=== PATIENT | male | born 2005 | race Caucasian/White ===

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

== ENCOUNTER 2023-04-18 09:33 | Emergency (ER) | payer OTHER, SELFPAY ==
[2023-04-18 10:00] VITALS: BP 140/82; PULSE 91; RESP 18; TEMP 36.8; O2SAT 99; BMI 17.6
[2023-04-18 10:18] LABS: UTC Strep Screen (Rapid) Positive (Negative)
--- NOTE | 2023-04-18 10:20 | EXP.UTC ---
Discharge Plan Disposition Patient Disposition: Home, Self-Care Condition: Good Prescriptions Prescriptions: New methylprednisolone 4 mg Tablets,Dose Pack 4 mg PO DIRECTED Qty: 21 0RF fzxpbxqwqrjaypa-[id number]-CF [Bromfed DM] 2-30-10 mg/5 mL Syrup 5 ml PO Q6H PRN (Reason: Cough) Qty: 240 0RF amoxicillin-pot clavulanate 875-125 mg Tablet 1 tab PO Q12H Qty: 20 0RF Referrals Follow up/Referrals: Avi Novak MD [Primary Care Provider] - See instructions Activity Restrictions/Add. Instructions Additional Instructions/Restrictions: Drink plenty of fluids. Take tylenol or ibuprofen for pain or fever. Take the medications as directed. Follow up with your regular doctor. GO TO THE ER FOR ANY WORSENING SYMPTOMS Throw your tooth brush away and get a new one. Clinical Impressions Clinical Impression: Strep throat Instructions Patient Instructions: DI for Strep Throat Discharge ED Provider: Farooq Cowart [facility] General Stated complaint: sore throat,runny nose Mode of Arrival: Ambulatory Source of Information: Patient Limitations: No Limitations Time Seen by Provider: 04/18/23 10:20 Description of Symptoms (Recalled from Triage Doc. by RN): runny nose, cough, sore throat, and body aches HEENT Symptoms (Recalled from RN notes): Yes Resp Symptoms (Recalled from RN notes): No Skin Symptoms (Recalled from RN notes): No MS Symptoms (Recalled from RN notes): No Functional Status (Recalled from RN notes): n/a Related Data Previous Rx's Medication Instructions Recorded amoxicillin 875 mg-potassium 1 tab PO Q12H #20 tabs 04/18/23 clavulanate 125 mg tablet tnyonjcgwoqarjq-mghpncvyhydrvfp-ST 5 ml PO Q6H PRN Cough #240 mL 04/18/23 2 mg-30 mg-10 mg/5 mL oral syrup (Bromfed DM) methylprednisolone 4 mg tablets in 4 mg PO DIRECTED #21 tabs 04/18/23 a dose pack Allergies Allergy/AdvReac Type Severity Reaction Status Date / Time No Known Allergies Allergy Verified 04/18/23 10:20 Worker's Comp Is this a Worker's Comp case?: No [facility] Disclaimer: The information contained in this section may have been updated after the patient was seen, as this information can be updated by other users. Social History Smoking Status: Never smoker alcohol intake: never substance use type: denies use current occupational status: student Travel in the last 8 weeks: None household members: family housing: house ROS Obtained: Yes All systems reviewed & no additional complaints except as documented Constitutional Constitutional: Reports chills and Reports fever(s) Eyes Eyes: Denies eye discharge ENT Ears, Nose, Mouth, and Throat: Reports as per HPI Cardiovascular Cardiovascular: Denies chest pain Respiratory Respiratory: Denies chest congestion and Reports cough Gastrointestinal Gastrointestingal: Reports nausea; Denies abdominal pain, constipation, cramping, diarrhea or vomiting Musculoskeletal Musculoskeletal: Denies arthralgias Integumentary/Breasts Skin/Breast: Denies rash Neurologic Neurologic: Denies paresthesias Physical Exam General General appearance: alert and in no apparent distress Head Head exam: atraumatic, normocephalic and normal inspection Eye Eye exam: Present normal appearance, PERRL and EOMI ENT ENT exam: Present mucous membranes moist and normal external ear exam Expanded ENT Exam TM/Canal exam: Bilateral TM: erythema and bulging Nose exam: Absent sinus tenderness Mouth exam: Present normal external inspection; Absent drooling Teeth exam: Present normal inspection Throat exam: Present tonsillar erythema, tonsillomegaly and tonsillar exudate Neck Neck exam: Present normal inspection, full ROM and trachea midline; Absent tenderness, meningismus or lymphadenopathy Chest Chest inspection: Present normal inspection and symmetric chest wall rise; Absent tenderness Respiratory Respiratory exam: P
[2023-04-18 11:02] VITALS: BP 140/82; PULSE 91; RESP 18; TEMP 36.8; O2SAT 99
== END 2023-04-18 11:02 | disposition home or self-care (01) ==
PROVIDERS: Emergency Provider Nurse Practitioner Family; PCP Family Medicine
DX: J02.0 Streptococcal pharyngitis (principal); R05.9 Cough, unspecified
CPT/HCPCS: 87880; 99212; 99214; G0463

== ENCOUNTER 2023-12-20 12:23 | Emergency (ER) | payer SELFPAY ==
[2023-12-20 12:24] VITALS: BP 142/77; PULSE 67; RESP 20; TEMP 37.1; O2SAT 98; BMI 18.7
[2023-12-20 12:30] VITALS: BP 137/76; PULSE 78; O2SAT 98
--- NOTE | 2023-12-20 12:44 | XR_ITS ---
FINAL REPORT CLINICAL HISTORY: car trunk closed on L flank/ribs, pain FINDINGS: LEFT RIBS 3 views were obtained. There is no acute fracture or dislocation. Visualized joint spaces are normally aligned. Soft tissues are unremarkable. Visualized lungs are clear. There is no pneumothorax. IMPRESSION: No acute bony abnormality. Reviewed, Interpreted and Dictated by Lino Ibanez III, MD Transcribed by Sil Khan Authenticated and . [facility]
--- NOTE | 2023-12-20 12:44 | XR_ITS ---
FINAL REPORT CLINICAL HISTORY: car trunk closed on L flank/ribs/pelvis, pain FINDINGS: SINGLE VIEW PELVIS: A single view of the pelvis was obtained. There is no acute fracture or dislocation. Vizualized joint spaces are normally aligned. Soft tissues are unremarkable. IMPRESSION: No acute bony abnormality. Reviewed, Interpreted and Dictated by Lino Ibanez III, MD Transcribed by Sil Khan Authenticated and [facility]
[2023-12-20] MEDS: IBUPROFEN 400 MG TABLET 800 MG PO (12:49)
[2023-12-20] MEDS: ACETAMINOPHEN 500MG TAB 1000 MG PO (12:49)
[2023-12-20] MEDS: LIDOCAINE 5% TRANSDERMAL PATCH 1 EACH TP (12:49)
--- NOTE | 2023-12-20 12:49 | ED_ITS ---
Discharge Plan Disposition Patient Disposition: Home, Self-Care Condition: Good Prescriptions Prescriptions: No Action methylprednisolone 4 mg Tablets,Dose Pack 4 mg PO DIRECTED Qty: 21 0RF mzsftombcyjzdpj-qcreqjtkq-JO [Bromfed DM] 2-30-10 mg/5 mL Syrup 5 ml PO Q6H PRN (Reason: Cough) Qty: 240 0RF amoxicillin-pot clavulanate 875-125 mg Tablet 1 tab PO Q12H Qty: 20 0RF Referrals Follow up/Referrals: Provider,Referral, [Primary Care Provider] - See instructions Activity Restrictions/Add. Instructions Additional Instructions/Restrictions: You were evaluated in the emergency department today. Please take Tylenol and ibuprofen at home as needed for pain. Follow-up with your primary care provider. Return to the emergency department for new or worsening symptoms. Clinical Impressions Clinical Impression: Contusion of rib on left side Stand Alone Forms Stand Alone Forms: Work/School Release Instructions Patient Instructions: DI for Rib Contusion, DI for Acute Pain -- Adult Discharge ED Provider: Viridiana Forman General Adult HPI General Chief complaint: PAIN Stated complaint: left side pain Time Seen by Provider: 12/20/23 12:33 Mode of Arrival: Ambulatory Source of Information: Patient Limitations: No Limitations Description of Symptoms (Recalled from ER Triage Doc. by RN): Patient states the trunk on a car closed on him last night. Patient states pain in his left side rib area rates pain 5/10 at this time. History of Present Illness HPI narrative: This patient is a 18-year-old male who denies significant past medical history presenting to the emergency department for evaluation with concern for left rib, left flank, and left pelvic pain after a car trunk closed on him last night. His pain is 5 out of 10. He states he went to bed last night and thought he would be fine, but when he tried to go to work today his pain was much worse. He is not taken any medications at home for the pain prior to arrival. His pain is worse on his left rib/flank when he tries to raise his left arm. No other concerns noted at this time. No head injury or loss of consciousness. No midline back pain, numbness, tingling, or other concerns. Related Data Previous Rx's Medication Instructions Recorded amoxicillin 875 mg-potassium 1 tab PO Q12H #20 tabs 04/18/23 clavulanate 125 mg tablet dgiwucsstsssndv-bajjzxwvfjddbnt-NA 5 ml PO Q6H PRN Cough #240 mL 04/18/23 2 mg-30 mg-10 mg/5 mL oral syrup (Bromfed DM) methylprednisolone 4 mg tablets in 4 mg PO DIRECTED #21 tabs 04/18/23 a dose pack Allergies Allergy/AdvReac Type Severity Reaction Status Date / Time No Known Allergies Allergy Verified 04/18/23 10:20 [facility] Disclaimer: The information contained in this section may have been updated after the patient was seen, as this information can be updated by other users. Social History Smoking Status: Never smoker alcohol intake: never substance use type: denies use current occupational status: student Travel in the last 8 weeks: None household members: family housing: house ROS Obtained: Yes All systems reviewed & no additional complaints except as documented Physical Exam General General appearance: alert and in no apparent distress Head Head exam: atraumatic and normocephalic Eye Eye exam: Present normal appearance, PERRL and EOMI ENT ENT exam: Present normal exam, normal oropharynx, mucous membranes moist and normal external ear exam Neck Neck exam: Present normal inspection, full ROM and trachea midline; Absent tenderness Chest Chest inspection: Present symmetric chest wall rise and tenderness (Left lateral lower ribs. No palpable crepitus, no obvious deformity, and no significant bruising) Respiratory Respiratory exam: Present normal lung sounds bilaterally; Absent respiratory distress, wheezes, stridor or accessory muscle use Cardiovascular Cardiovascular exam: Present regular rate and normal rhythm Abdominal Exam Abdominal exam: Present soft; Absent distention, tenderness or guarding Extremities Exam Extremities exam: Present normal inspection, full ROM, normal capillary refill and other (Tender to palpation of the left iliac crest without obvious deformity.); Absent tenderness or edema Back Exam Back exam: Present normal inspection and full ROM; Absent tenderness, paraspinal tenderness or vertebral tenderness Neurological Exam Neurological exam: Present alert, oriented X3, CN II-XII intact and normal gait; Absent motor sensory deficit Psychiatric Psychiatric exam: Present normal affect and normal mood Skin Skin exam: Present warm and dry Medical Decision Making Medical Records Medical records reviewed: Yes I reviewed the patient's medical records. Mg Inquiry Pt receiving controlled substance: No Vital Signs: 12/20/23 12:24 12/20/23 12:30 12/20/23 13:30 Temperature 98.7 F Temperature Source Oral Pulse Rate 78 67 Pulse Rate [Right Radial] 67 Respiratory Rate 20 Blood Pressure 137/76 132/70 Blood Pressure [Right Arm] 142/77 H Blood Pressure Mean [Right Arm] 98 Blood Pressure Source Blood Pressure Source [Right Arm] Automatic Cuff Blood Pressure Position Blood Pressure Position [Right Arm] Sitting 02 Sat by Pulse Oximetry 98 98 98 Oxygen Delivery Method Room Air Room Air Room Air 12/20/23 14:19 Temperature 98.8 F Temperature Source Oral Pulse Rate 72 Pulse Rate [Right Radial] Respiratory Rate 20 Blood Pressure 119/73 Blood Pressure [Right Arm] Blood Pressure Mean [Right Arm] Blood Pressure Source Automatic Cuff Blood Pressure Source [Right Arm] Blood Pressure Position Sitting Blood Pressure Position [Right Arm] 02 Sat by Pulse Oximetry Oxygen Delivery Method Room Air Lab Data Lab results reviewed: Yes I reviewed the patient's lab results. Orders (Tests/Meds): ED MEDICATIONS Discontinued Medications Generic Name Dose Route Start Last Admin Trade Name Devonq PRN Reason Stop Dose Admin Acetaminophen 1,000 mg 12/20/23 12:44 12/20/23 12:49 Acetaminophen 500mg Tab PO 12/20/23 12:45 1,000 mg ONCE ONE Administration Ibuprofen 800 mg 12/20/23 12:44 12/20/23 12:49 Ibuprofen 400 Mg Tablet PO 12/20/23 12:45 800 mg ONCE ONE Administration Lidocaine 1 each 12/20/23 12:44 12/20/23 12:49 Lidocaine 5% Transdermal Patch TP 12/20/23 12:45 1 each ONCE ONE Administration ORDERS Category Date Time Status XR pelvis 1-2V Stat Exams 12/20/23 12:44 Completed XR ribs LT min 3V w CXR1V Stat Exams 12/20/23 12:44 Completed Medical Decision Narrative: In summary, this patient is a 18-year-old male presenting to the Emergency Department for evaluation of left flank and rib pain after a car trunk closed on him. Differential diagnoses considered include but are not limited to rib fractures, contusion, strain/sprain. Ruling out the most morbid conditions drove assessment. On exam, the patient is well-appearing. He has tenderness palpation of the left lower ribs, left flank, and left iliac crest. Exam is otherwise reassuring. Workup included x-rays of the left ribs and chest as well as x-ray of the pelvi s. He was given oral Tylenol, ibuprofen, and topical Lidoderm patch for symptomatic improvement. I independently interpreted XR prior to the radiologist read and noted no acute fracture. Please see their read for final interpretation. On reassessment, the patient is resting comfortably. I feel he likely has pain related to rib contusion at this time. Given this, feel that he is appropriate for discharge home. He was given instructions for supportive management and strict return precautions. Patient was discharged after all questions were answered. Critical Care Critical Care Time Critical Care Time: No
[2023-12-20 13:30] VITALS: BP 132/70; PULSE 67; O2SAT 98
[2023-12-20 14:19] VITALS: BP 119/73; PULSE 72; RESP 20; TEMP 37.1; O2SAT 99
== END 2023-12-20 14:23 | disposition home or self-care (01) ==
PROVIDERS: Emergency Provider Emergency Medicine
DX: S20.212A Contusion of left front wall of thorax, initial encounter (principal); W22.8XXA Striking against or struck by other objects, initial encounter
CPT/HCPCS: 71101; 72170; 99283

== ENCOUNTER 2024-01-31 10:45 | Emergency (ER) | payer SELFPAY ==
[2024-01-31 11:30] VITALS: BP 141/73; PULSE 75; RESP 18; TEMP 36.9; O2SAT 99; BMI 17.9
--- NOTE | 2024-01-31 12:10 | ED_ITS ---
Discharge Plan Disposition Patient Disposition: Home, Self-Care Condition: Good Prescriptions Prescriptions: New cefdinir 300 mg capsule 300 mg PO Q12H 10 Days Qty: 20 0RF aishwfbxcqnqjwj-nmtcvovbk-IP [Bromfed DM] 2-30-10 mg/5 mL syrup 10 ml PO Q6H PRN (Reason: cold symptoms) Qty: 200 0RF Referrals Follow up/Referrals: Provider,Referral, MD [Primary Care Provider] - See instructions Activity Restrictions/Add. Instructions Additional Instructions/Restrictions: Take medication as prescribed. Increase fluids and rest. If symptoms persist or worsen, return to clinic or go to your PCP. Clinical Impressions Clinical Impression: Pharyngitis Qualifiers: Pharyngitis/tonsillitis etiology: unspecified etiology Qualified Code(s): J02.9 - Acute pharyngitis, unspecified Upper respiratory tract infection Qualifiers: URI type: unspecified URI Qualified Code(s): J06.9 - Acute upper respiratory infection, unspecified Instructions Patient Instructions: DI for Pharyngitis/Tonsillopharyngitis -- Adult, DI for Viral Upper Respiratory Infection -- Adult Discharge ED Provider: Yenifer Bernabe [facility] General Stated complaint: bloody mucus, sweats, congestion, cough Mode of Arrival: Ambulatory Source of Information: Patient Limitations: No Limitations Time Seen by Provider: 01/31/24 12:09 Description of Symptoms (Recalled from Triage Doc. by RN): Pt's symptoms are sore throat, coughing, fatigue, and nausea. HEENT Symptoms (Recalled from RN notes): Yes Resp Symptoms (Recalled from RN notes): No Skin Symptoms (Recalled from RN notes): No MS Symptoms (Recalled from RN notes): No Functional Status (Recalled from RN notes): n/a History of Present Illness Provider Complaint: Pt's symptoms are sore throat, coughing, fatigue, and nausea. He reports that he took allergy medication. Related Data Previous Rx's Medication Instructions Recorded bfnycckasdubske-fhdurbltzvghdkh-AH 10 ml PO Q6H PRN cold symptoms 01/31/24 2 mg-30 mg-10 mg/5 mL oral syrup #200 mL (Bromfed DM) cefdinir 300 mg capsule 300 mg PO Q12H 10 days #20 caps 01/31/24 Allergies Allergy/AdvReac Type Severity Reaction Status Date / Time No Known Allergies Allergy Verified 01/31/24 11:48 Worker's Comp Is this a Worker's Comp case?: No [facility] Disclaimer: The information contained in this section may have been updated after the patient was seen, as this information can be updated by other users. Social History Smoking Status: Never smoker alcohol intake: never substance use type: denies use current occupational status: student Travel in the last 8 weeks: None household members: family housing: house ROS Obtained: Yes All systems reviewed & no additional complaints except as documented Constitutional Constitutional: Reports system reviewed and no additional complaints, except as documented, Reports fatigue and Reports malaise ENT Ears, Nose, Mouth, and Throat: Reports system reviewed and no additional complaints, except as documented, Reports nasal congestion, Reports nasal discharge, Reports odynophagia, Reports post nasal drip and Reports sore throat Cardiovascular Cardiovascular: Reports system reviewed and no additional complaints, except as documented Respiratory Respiratory: Reports system reviewed and no additional complaints, except as documented and Reports cough Gastrointestinal Gastrointestingal: Reports system reviewed and no additional complaints, except as documented, nausea and odynophagia Genitourinary Male Genitourinary: Reports system reviewed and no additional complaints, except as documented Musculoskeletal Musculoskeletal: Reports system reviewed and no additional complaints, except as documented Integumentary/Breasts Skin/Breast: Reports system reviewed and no additional complaints, except as documented Neurologic Neurologic: Reports system reviewed and no additional complaints, except as documented Endocrine Endocrine: Reports system reviewed and no additional complaints, except as documented and Reports fatigue Hematologic/Lymphatic Henatologic/Lymphatic: Reports system reviewed and no additional complaints, except as documented Allergic/Immunologic Allergic/Immunologic: Reports system reviewed and no additional complaints, ex cept as documented Physical Exam General General appearance: alert Comment: ill appearing Head Head exam: atraumatic and normocephalic Eye Eye exam: Present normal appearance Expanded ENT Exam External ear exam: Present normal external inspection Nose exam: Present sinus tenderness Nasal speculum exam: Bilateral: other (clear drainage) Mouth exam: Present normal external inspection Teeth exam: Present normal inspection Throat exam: Present tonsillar erythema and tonsillomegaly Comment: tonsils are touching Neck Neck exam: Present lymphadenopathy Chest Chest inspection: Present normal inspection and symmetric chest wall rise Respiratory Respiratory exam: Present normal lung sounds bilaterally Cardiovascular Cardiovascular exam: Present regular rate, normal rhythm and normal heart sounds Abdominal Exam Abdominal exam: Present soft and normal bowel sounds Extremities Exam Extremities exam: Present normal inspection Back Exam Back exam: Present normal inspection Neurological Exam Neurological exam: Present alert and oriented X3 Psychiatric Psychiatric exam: Present normal affect and normal mood Skin Skin exam: Present warm, dry and intact Lymphatic Lymphatic Findings: no adenopathy Medical Decision Making Mg Inquiry Pt receiving controlled substance: No Mg was queried for this patient: No Vital Signs: 01/31/24 11:30 Temperature 98.5 F Temperature Source Oral Pulse Rate [Right Radial] 75 Respiratory Rate 18 Blood Pressure [Right Arm] 141/73 H Blood Pressure Mean [Right Arm] 95 Blood Pressure Source [Right Arm] Automatic Cuff Blood Pressure Position [Right Arm] Sitting 02 Sat by Pulse Oximetry 99 Oxygen Delivery Method Room Air
[2024-01-31 12:15] LABS: UTC Strep Screen (Rapid) Negative (Negative)
[2024-01-31 12:29] VITALS: BP 141/73; PULSE 75; RESP 18; TEMP 36.9; O2SAT 99
== END 2024-01-31 12:29 | disposition home or self-care (01) ==
PROVIDERS: Emergency Provider Nurse Practitioner Family
DX: J02.9 Acute pharyngitis, unspecified (principal); R05.9 Cough, unspecified; R11.0 Nausea; J06.9 Acute upper respiratory infection, unspecified
CPT/HCPCS: 87880; 99212; 99214; G0463

== ENCOUNTER 2024-07-16 23:40 | Emergency (ER) | payer SELFPAY ==
[2024-07-16 23:42] VITALS: BP 163/74; PULSE 104; RESP 20; TEMP 37.4; O2SAT 99; BMI 18.6
--- NOTE | 2024-07-16 23:44 | XR_ITS ---
PROCEDURE INFORMATION: Exam: XR Right Hand Exam date and time: 07/16/2024 11:42 PM Age: 18 years old Clinical indication: Injury or trauma; Other: Punched brick wall; Other: Pain; Additional info: Punched a wall, fifth digit pain TECHNIQUE: Imaging protocol: Radiologic exam of the right hand. Views: 3 or more views. COMPARISON: No relevant prior studies available. FINDINGS: Bones/joints: There is a angulated fracture of the 5th metacarpal. Soft tissues: Normal. IMPRESSION: There is a angulated fracture of the 5th metacarpal.
--- NOTE | 2024-07-16 23:44 | ED_ITS ---
Discharge Plan Disposition Patient Disposition: Home, Self-Care Prescriptions Prescriptions: No Action cefdinir 300 mg capsule 300 mg PO Q12H 10 Days Qty: 20 0RF ehwnggfmbjkgmtq-wtnnbjpgj-QN [Bromfed DM] 2-30-10 mg/5 mL syrup 10 ml PO Q6H PRN (Reason: cold symptoms) Qty: 200 0RF Referrals Follow up/Referrals: Fredis Davidson DO [Staff Physician] - See instructions Provider,Referral, [Primary Care Provider] - See instructions Activity Restrictions/Add. Instructions Additional Instructions/Restrictions: Please follow-up with our orthopedist Dr. Davidson. Please keep fingers dimple taped. Take Tylenol and ibuprofen as needed for pain. Please follow-up with your primary care provider. Please return to the emergency department if you develop any new or worsening symptoms or become concerned for your health. Clinical Impressions Clinical Impression: Closed fracture of fifth metacarpal bone Qualifiers: Encounter type: initial encounter Metacarpal location: neck Fracture alignment: displaced Laterality: right Qualified Code(s): S62.336A - Displaced fracture of neck of fifth metacarpal bone, right hand, initial encounter for closed fracture Print Language Print Language: Lebanese Discharge ED Provider: Tramaine Reaves General Adult HPI General Chief complaint: PAIN Stated complaint: r hand injury, swollen Time Seen by Provider: 07/16/24 23:44 History of Present Illness HPI narrative: 18-year-old male without significant past medical history presents with right hand injury. He reports that he was getting frustrated while fixing his car and he punched a wall resulting in pain in his right hand. Denies pain in his wrist forearm elbow etc. He does not know when his last tetanus shot is. Related Data Previous Rx's ?Medication ?Instructions ?Recorded mwnsujigpzaufrp-tdnynntexwqidfz-JK 10 ml PO Q6H PRN cold symptoms 01/31/24 2 mg-30 mg-10 mg/5 mL oral syrup #200 mL (Bromfed DM) cefdinir 300 mg capsule 300 mg PO Q12H 10 days #20 caps 01/31/24 Allergies Allergy/AdvReac Type Severity Reaction Status Date / Time No Known Allergies Allergy Verified [facility]/31[facility]24 11:[facility] Disclaimer: The information contained in this section may have been updated after the pat ient was seen, as this information can be updated by other users. Social History Smoking Status: Current every day smoker alcohol intake: never substance use type: denies use current occupational status: student Travel in the last 8 weeks: None household members: family housing: house Other Medical History Have you received the Flu Vaccine for this season: No Have you received the Pneumonia Vaccine: No ROS Obtained: Yes All systems reviewed & no additional complaints except as documented Physical Exam General General appearance: alert and in no apparent distress Head Head exam: atraumatic and normocephalic Eye Eye exam: Present normal appearance, PERRL and EOMI ENT ENT exam: Present normal oropharynx and normal external ear exam Neck Neck exam: Present normal inspection and full ROM Chest Chest inspection: Present normal inspection and symmetric chest wall rise; Absent tenderness Respiratory Respiratory exam: Present normal lung sounds bilaterally; Absent respiratory distress Cardiovascular Cardiovascular exam: Present regular rate and normal rhythm Abdominal Exam Abdominal exam: Present soft; Absent distention, tenderness or guarding Extremities Exam Extremities exam: Present other (Right hand: Tenderness and swelling over the dorsal aspect of the right fifth metacarpal neck. Small abrasion over the fifth proximal phalanx. No rotational deformity, normal neurovascular exam.) Back Exam Back exam: Present normal inspection; Absent tenderness Neurological Exam Neurological exam: Present alert and oriented X3; Absent motor sensory deficit Psychiatric Psychiatric exam: Present normal affect and normal mood Skin Skin exam: Present warm, dry and normal color Lymphatic Lymphatic Findings: no adenopathy Medical Decision Making Medical Records Medical records reviewed: Yes I reviewed the patient's medical records. Screening: Per USPSTF and CDC recommendations, given the prevalence of disease in our region, it is our hospital?s policy to screen for HIV and viral Hepatitis for all patients aged 18 and over and those with ongoing risk factors. Mg Inquiry Pt receiving controlled substance: No Mg was queried for this patient: No Vital Signs: 07/16/24 23:42 07/17/24 00:10 Temperature 99.4 F 99.4 F Temperature Source Oral Oral Pulse Rate 94 H Pulse Rate [Right Brachial] 104 H Respiratory Rate 20 18 Blood Pressure 145/62 H Blood Pressure [Right Arm] 163/74 H Blood Pressure Mean [Right Arm] 103 Blood Pressure Source Automatic Cuff Blood Pressure Source [Right Arm] Automatic Cuff Blood Pressure Position Sitting Blood Pressure Position [Right Arm] Supine 02 Sat by Pulse Oximetry 99 Oxygen Delivery Method Room Air Room Air Lab Data Lab results reviewed: Yes I reviewed the patient's lab results. Orders (Tests/Meds): ED MEDICATIONS Discontinued Medications Generic Name Dose Route Start Last Admin Trade Name Iman PRN Reason Stop Dose Admin Tetanus/Reduced Diphtheria/Acell Pertussis 0.5 ml 07/16/24 23:58 07/17/24 00:02 Tet/Diphth/Pert-Adult 0.5ml Syringe IM 07/16/24 23:59 0.5 ml .ONCE ONE Administration ORDERS Category Date Time Status Hand XR right minimum 3 views [XR hand RT min 3V] Stat Exams 07/16/24 23:44 Taken Medical Decision Narrative: 18-year-old male without significant past medical history presents with right hand trauma after punching a wall. History was obtained via interactive discussion with patient. On arrival, patient is [afebrile, hemodynamically stable, satting appropriately, alert, oriented x4, GCS 15], moving all extremities spontaneously. Full physical exam performed and significant for findings as discussed above. Differential includes but is not limited to fracture, dislocation, neurovascular/segmentals injury. Patient was given Tdap for abrasion Workup initiated including radiographs of the right hand. On re-evaluation, patient [remains afebrile, HD stable.] Imaging independently interpreted by me and significant for right metacarpal neck fracture. See radiology read for full review of final results. Given patient history, exam and workup, patient's presentation most likely represents right fifth metacarpal neck fracture. Post injury. No rotational deformity on exam. Patient's fingers were dimple taped and he was discharged with instructions to follow-up with Dr. Davidson. Procedures Risk/Benefits of Procedure(s) Were Explained: Yes Critical Care Critical Care Time Critical Care Time: No
--- NOTE | 2024-07-16 23:47 | PC.NURSE ---
ice pack applied
[2024-07-17] MEDS: TET/DIPHTH/PERT-ADULT 0.5ML SYRINGE 0.5 ML IM (00:02)
[2024-07-17 00:10] VITALS: BP 145/62; PULSE 94; RESP 18; TEMP 37.4; O2SAT 99
== END 2024-07-17 00:13 | disposition home or self-care (01) ==
PROVIDERS: Emergency Provider Emergency Medicine
DX: M79.641 Pain in right hand (principal); S62.336A Displaced fracture of neck of fifth metacarpal bone, right hand, initial encounter for closed fracture; Z23 Encounter for immunization; W22.01XA Walked into wall, initial encounter; Y93.89 Activity, other specified; Y92.89 Other specified places as the place of occurrence of the external cause
CPT/HCPCS: 73130; 90471; 90715; 99283

== ENCOUNTER 2024-09-20 11:59 | Emergency (ER) | payer SELFPAY ==
[2024-09-20 12:00] VITALS: BP 139/77; PULSE 102; RESP 18; TEMP 37; O2SAT 98; BMI 19.8
--- NOTE | 2024-09-20 12:04 | ED_ITS ---
<Statement entered by Viridiana Forman DO - 09/20/24 15:40> I was consulted by the JESSICA, and we discussed the complexity of the problems being addressed. I approved the treatment and management plan for this patient's care in the emergency department, thus performing a substantive portion of the medical decision making. Viridiana Forman DO Discharge Plan Disposition Patient Disposition: Home, Self-Care Condition: Good Prescriptions Prescriptions: No Action cefdinir 300 mg capsule 300 mg PO Q12H 10 Days Qty: 20 0RF [id number] [Bromfed DM] 2-30-10 mg/5 mL syrup 10 ml PO Q6H PRN (Reason: cold symptoms) Qty: 200 0RF Referrals Follow up/Referrals: Provider,Referral, MD [Primary Care Provider] - See instructions Activity Restrictions/Add. Instructions Additional Instructions/Restrictions: Continue taking Tylenol alternating with Motrin every 4 hours for your constitutional symptoms. If you have any new continued or worsening signs or symptoms follow-up with your PCP return to the ER as needed. Clinical Impressions Clinical Impression: Upper respiratory tract infection Qualifiers: URI type: unspecified URI Qualified Code(s): J06.9 - Acute upper respiratory infection, unspecified Stand Alone Forms Stand Alone Forms: Work/School Release Print Language Print Language: Afghan Discharge ED Provider: Viridiana Forman General Adult HPI General Chief complaint: Upper Respiratory Infection Stated complaint: chills, sore throat, body aches Time Seen by Provider: 09/20/24 12:03 History of Present Illness HPI narrative: Patient presents for evaluation of myalgias body aches nasal congestion. Patient states that he woke up this morning after going to bed well and felt sore all over without known trauma. He reports that those symptoms have progressed with nasal congestion and cough. He denies any hemoptysis chest pain shortness of breath nausea vomiting or diarrhea. Related Data Previous Rx's ?Medication ?Instructions ?Recorded [id number] 10 ml PO Q6H PRN cold symptoms 01/31/24 2 mg-30 mg-10 mg/5 mL oral syrup #200 mL (Bromfed DM) cefdinir 300 mg capsule 300 mg PO Q12H 10 days #20 caps 01/31/24 Allergies Allergy/AdvReac Type Severity Reaction Status Date / Time No Known Allergies Allergy Verified 07/20/24 13:11 [facility] Disclaimer: The information contained in this section may have been updated after the patient was seen, as this information can be updated by other users. Social History Smoking Status: Never smoker alcohol intake: never substance use type: denies use current occupational status: student Travel in the last 8 weeks: None household members: family housing: house Have you lived/traveled outside US in past 30 days?: No Contact w/someone who lives/traveled outside US past 30 days?: No Exposure to someone with infectious disease in past 14 days?: No Do you have a fever (greater than 100.4 F or 38 C)?: No Have you tested positive for COVID-19: No Exposed to someone with COVID-19 in past 14 days?: No Do you have a sore throat?: Yes Do you have a cough?: No Do you have any weakness?: No Do you have any diarrhea?: No Are you experiencing any unusual bleeding?: No Do you have any muscle aches/pain?: Yes Do you have any abdominal pain?: No Are you experiencing loss of taste or smell?: No Other Medical History Have you received the Flu Vaccine for this season: No Have you received the Pneumonia Vaccine: No ROS Obtained: Yes Systems reviewed as appropriate & no additional complaints except as documented Physical Exam General General appearance: alert and in no apparent distress Respiratory Respiratory exam: Present normal lung sounds bilaterally Cardiovascular Cardiovascular exam: Present tachycardia Neurological Exam Neurological exam: Present alert and oriented X3 Medical Decision Making Medical Records Medical records reviewed: Yes I reviewed the patient's medical records. Screening: Per USPSTF and CDC recommendations, given the prevalence of disease in our region, it is our hospital?s policy to screen for HIV and viral Hepatitis for all patients aged 18 and over and those with ongoing risk factors. Mg Inquiry Pt receiving controlled substance: No Vital Signs: 09/20/24 12:00 Temperature 98.6 F Temperature Source Oral Pulse Rate [Right] 102 H Respiratory Rate 18 Blood Pressure [Right Arm] 139/77 Blood Pressure Mean [Right Arm] 97 Blood Pressure Source [Right Arm] Automatic Cuff Blood Pressure Position [Right Arm] Sitting 02 Sat by Pulse Oximetry 98 Oxygen Delivery Method Room Air Lab Data Lab results reviewed: Yes I reviewed the patient's lab results. Lab Results 09/20/24 12:04: SARS-CoV-2 (PCR) Not detected, Influenza A Untype (PCR) Not detected, Influenza Type B (PCR) Not detected Orders (Tests/Meds): ED MEDICATIONS Discontinued Medications Generic Name Dose Route Start Last Admin Trade Name Iman PRN Reason Stop Dose Admin Acetaminophen 1,000 mg 09/20/24 12:11 09/20/24 12:18 Acetaminophen 500mg Tab PO 09/20/24 12:12 1,000 mg ONCE ONE Administration Ibuprofen 800 mg 09/20/24 12:11 09/20/24 12:17 Ibuprofen 400 Mg Tablet PO 09/20/24 12:12 800 mg ONCE ONE Administration ORDERS Category Date Time Status Full Resp Panel w/COVID ([facility]) Routine Lab 09/20/24 13:06 Ordered Rapid PCR Covid and Flu A/B Routine Lab 09/20/24 12:04 Completed Medical Decision Narrative: In summary patient is a 18-year-old male who presents to the emergency department for evaluation of viral syndrome. Patient is normotensive at 139/77 tachycardic at 102 with sinus tachycardia on the bedside monitor breathing 18 times a minute satting at 98% on room air upon arrival, febrile at 98.6. Physical exam is remarkable for boggy nasal mucosa with clear rhinorrhea currently posterior pharynx is erythematous but no exudate, breath sounds clear and equal bilaterally to the bases without adventitious sounds, abdomen soft nontender. Differential diagnosis includes viral upper or lower respiratory tract infection. Initial workup will be conducted with COVID and flu swabs. Initial interventions include Tylenol and Motrin. Initial workup reviewed by me shows that his COVID and flu are negative.. Upon repeat evaluation patient feels slightly better after initial intervention. 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 Given this patient is appropriate for discharge with structures continue Tylenol and Motrin and a work of Skiest for 2 days. Critical Care Critical Care Time Critical Care Time: No
[2024-09-20 12:16] LABS: Coronavirus 19, PCR Not Detected (NotDetected); Influenza A, PCR Not Detected (NotDetected); Influenza B, PCR Not Detected (NotDetected)
[2024-09-20] MEDS: IBUPROFEN 400 MG TABLET 800 MG PO (12:17)
[2024-09-20] MEDS: ACETAMINOPHEN 500MG TAB 1000 MG PO (12:18)
[2024-09-20 13:10] LABS: Adenovirus,PCR Not Detected (NotDetected); Bordetella Pertussis Not Detected (NotDetected); Chlamydophila Pneumoniae, PCR Not Detected (NotDetected); Coronavirus 19, PCR Not Detected (NotDetected); Coronavirus 229E Not Detected (NotDetected); Coronavirus NL63 Not Detected (NotDetected); Coronavirus OC43 Not Detected (NotDetected); Coronovirus HKU1,PCR Not Detected (NotDetected); Human Metapneumovirus Not Detected (NotDetected); Influenza A, PCR Not Detected (NotDetected); Influenza AH1, 2009 Not Detected (NotDetected); Influenza AH1, PCR Not Detected (NotDetected); Influenza AH3,PCR Not Detected (NotDetected); Influenza B, PCR Not Detected (NotDetected); Mycoplasma Pneumoniae, PCR Not Detected (NotDetected); Parainfluenza 1, PCR Not Detected (NotDetected); Parainfluenza 2, PCR Not Detected (NotDetected); Parainfluenza 3, PCR Not Detected (NotDetected); Parainfluenza 4, PCR Not Detected (NotDetected); Respiratory Syncytial Virus Not Detected (NotDetected)
--- NOTE | 2024-09-20 13:14 | PC.NURSE ---
ROUNDED ON THE PT. THE PT VOICES THAT HE DOES NOT NEED ANYTHING AT THIS TIME. CALL LIGHT IS WITHIN REACH OF THE PT.
[2024-09-20 13:17] VITALS: BP 126/71; PULSE 85; RESP 19; TEMP 36.7
[2024-09-20 14:46] LABS: Rhinovirus/Enterovirus Detected (NotDetected)
== END 2024-09-20 13:17 | disposition home or self-care (01) ==
PROVIDERS: Physician Assistant; Emergency Provider Emergency Medicine
DX: J06.9 Acute upper respiratory infection, unspecified (principal); R05.9 Cough, unspecified; R09.81 Nasal congestion; M79.10 Myalgia, unspecified site; J02.9 Acute pharyngitis, unspecified; R68.83 Chills (without fever)
CPT/HCPCS: 87633; 87636; 99283

== ENCOUNTER 2024-11-20 20:33 | Emergency (ER) | payer SELFPAY ==
[2024-11-20 20:36] VITALS: BP 111/68; PULSE 98; RESP 18; TEMP 36.8; O2SAT 98; BMI 18.6
[2024-11-20 20:49] LABS: Coronavirus 19, PCR Not Detected (NotDetected); Influenza A, PCR Not Detected (NotDetected); Influenza B, PCR Not Detected (NotDetected)
--- NOTE | 2024-11-20 20:53 | PC.NURSE ---
Augusto FERNANDEZ assessing patient
[2024-11-20] MEDS: IBUPROFEN 600 MG TABLET PO (21:00)
[2024-11-20] MEDS: DEXAMETHASONE 1MG/1ML INTENSOL 10ML UDC (ER) 10 MG PO (21:00)
--- NOTE | 2024-11-20 21:04 | ED_ITS ---
Discharge Plan Disposition Patient Disposition: Home, Self-Care Prescriptions Prescriptions: No Action No Known Home Medications Referrals Follow up/Referrals: Provider,Referral, MD [Primary Care Provider] - See instructions Activity Restrictions/Add. Instructions Additional Instructions/Restrictions: Your COVID flu and strep test are all negative but your symptoms are consistent with a viral pharyngitis. Please take sokc-eel-irpxanx medications as discussed. Return with any significant worsening of your symptoms. Clinical Impressions Clinical Impression: Pharyngitis Stand Alone Forms Stand Alone Forms: Work/School Release Print Language Print Language: Argentine Discharge ED Provider: Dayanara Casas General Adult HPI General Chief complaint: Upper Respiratory Infection Stated complaint: sore throat,coughing up blood,feels bad Time Seen by Provider: 11/20/24 20:52 Mode of Arrival: Ambulatory Source of Information: Patient Description of Symptoms (Recalled from ER Triage Doc. by RN): Pt presents for evaluation cough, congestion, sore throat, chills, bodyaches that started at 5pm today History of Present Illness HPI narrative: Patient is a 19-year-old male presenting today with primarily sore throat and feeling low bit lightheaded and having a fever. Tmax was 102 earlier today. Denies any significant cough congestion etc. Primarily sore throat today. Did endorse some of the other symptoms in triage to the nurse. No past medical his tory. Took Mucinex but no other medications prior to arrival. Related Data Home Medications ?Medication ?Instructions ?Recorded ?Confirmed No Known Home Medications 11/20/24 11/20/24 Allergies Allergy/AdvReac Type Severity Reaction Status Date / Time No Known Allergies Allergy Verified 11/20/24 20:40 [facility] Disclaimer: The information contained in this section may have been updated after the pia nt was seen, as this information can be updated by other users. Social History Smoking Status: Current every day smoker alcohol intake: never substance use type: denies use current occupational status: student Travel in the last 8 weeks: None household members: family housing: house Have you lived/traveled outside US in past 30 days?: No Contact w/someone who lives/traveled outside US past 30 days?: No Exposure to someone with infectious disease in past 14 days?: No Do you have a fever (greater than 100.4 F or 38 C)?: No Have you tested positive for COVID-19: No Exposed to someone with COVID-19 in past 14 days?: No Do you have a sore throat?: No Do you have a cough?: No Do you have any weakness?: No Do you have any diarrhea?: No Are you experiencing any unusual bleeding?: No Do you have any muscle aches/pain?: No Do you have any abdominal pain?: No Are you experiencing loss of taste or smell?: No Other Medical History Have you received the Flu Vaccine for this season: No Have you received the Pneumonia Vaccine: No ROS Obtained: Yes All systems reviewed & no additional complaints except as documented Physical Exam General General appearance: alert ENT ENT exam: Present other (Mild tonsillar enlargement and erythema but no significant exudates no soft tissue asymmetry patient tolerating secretions well no trismus) Respiratory Respiratory exam: Present normal lung sounds bilaterally Cardiovascular Cardiovascular exam: Present regular rate Neurological Exam Neurological exam: Present alert Medical Decision Making Medical Records Screening: Per USPSTF and CDC recommendations, given the prevalence of disease in our region, it is our hospital?s policy to screen for HIV and viral Hepatitis for all patients aged 18 and over and those with ongoing risk factors. Mg Inquiry Pt receiving controlled substance: No Vital Signs: 11/20/24 20:36 Temperature 98.2 F Temperature Source Oral Pulse Rate [Right] 98 H Respiratory Rate 18 Blood Pressure [Right Arm] 111/68 Blood Pressure Mean [Right Arm] 82 Blood Pressure Source [Right Arm] Automatic Cuff Blood Pressure Position [Right Arm] Sitting 02 Sat by Pulse Oximetry 98 Lab Data Lab results reviewed: Yes I reviewed the patient's lab results. Lab Results 11/20/24 20:41: SARS-CoV-2 (PCR) Not detected, Influenza A Untype (PCR) Not detected, Influenza Type B (PCR) Not detected 11/20/24 21:38: Group A Strep Rapid Negative Orders (Tests/Meds): ED MEDICATIONS Discontinued Medications Generic Name Dose Route Start Last Admin Trade Name Freq PRN Reason Stop Dose Admin Dexamethasone 10 mg 11/20/24 20:56 11/20/24 21:00 Dexamethasone 1mg/1ml Intensol 10ml Udc (Er) PO 11/20/24 20:57 10 mg ONCE ONE Administration Ibuprofen 600 mg 11/20/24 20:56 11/20/24 21:00 Ibuprofen 600 Mg Tablet PO 11/20/24 20:57 600 mg ONCE ONE Administration ORDERS Category Date Time Status Rapid PCR Covid and Flu A/B Stat Lab 11/20/24 20:41 Completed Strep Scrn Group A (Rapid) Stat Lab 11/20/24 21:38 Completed Strep Screen Confirmation Stat Micro 11/20/24 21:38 Received Medical Decision Narrative: Patient presents today with infectious symptoms primarily pharyngitis possibly has other URI type symptoms differential includes COVID flu strep pharyngitis etc. Steroids and ibuprofen have been given for symptomatic relief will reassess after the initial infectious etiology testing has been performed. Reassessment 10:18 PM COVID flu strep all negative symptoms likely all secondary to a viral syndrome discussed this with the patient offered prescription medications but he opted to take viib-ldp-jvhinhu medications return precautions emphasized patient was discharged in stable condition. Critical Care Critical Care Time Critical Care Time: No
[2024-11-20 21:53] LABS: Strep Scrn Group A (Rapid) Negative (Negative)
--- NOTE | 2024-11-20 22:14 | PC.NURSE ---
lance castaneda updating patient on results and plan to discharge
[2024-11-20 22:19] VITALS: BP 120/78; PULSE 78; RESP 18; TEMP 36.8; O2SAT 98
== END 2024-11-20 22:20 | disposition home or self-care (01) ==
PROVIDERS: Emergency Provider Student in an Organized Health Care Education/Training Program
DX: J02.9 Acute pharyngitis, unspecified (principal); R50.9 Fever, unspecified; R09.89 Other specified symptoms and signs involving the circulatory and respiratory systems
CPT/HCPCS: 99283; 87430; 87636

== ENCOUNTER 2025-06-26 11:15 | Emergency (ER) | payer SELFPAY ==
[2025-06-26 11:22] VITALS: BP 133/83; PULSE 99; RESP 16; TEMP 37.1; O2SAT 100; BMI 19.9
--- NOTE | 2025-06-26 11:36 | ED_ITS ---
Discharge Plan Disposition Patient Disposition: Home, Self-Care Prescriptions Prescriptions: New amoxicillin-pot clavulanate 875-125 mg tablet 1 tab PO BID 10 Days Qty: 20 0RF Referrals Follow up/Referrals: Earl Roe MD [Physician, Ear, Nose, Throat] - See instructions Provider,MD Mandie [Primary Care Provider, Medical] - See instructions Activity Restrictions/Add. Instructions Additional Instructions/Restrictions: You have severe bilateral exudative pharyngitis significantly worse on the right concerning for a possible peritonsillar abscess. CT scan with contrast was offered however you declined this. We had a risk-benefit discussion regarding the seriousness of this if you get worse please return to the emergency department otherwise follow-up closely with ENT. Long-acting steroids have been given in addition to antibiotics. Clinical Impressions Clinical Impression: Exudative pharyngitis Print Language Print Language: Bengali Discharge ED Provider: Dayanara Casas General Adult HPI General Chief complaint: Sore Throat Stated complaint: throat pain, coughing, chest pain w coughing Time Seen by Provider: 06/26/25 11:24 Mode of Arrival: Ambulatory Source of Information: Patient Description of Symptoms (Recalled from ER Triage Doc. by RN): Patient complaining of sore throat, cough that started last night. Denies vomiting or diarrhea. History of Present Illness HPI narrative: Patient is a 19-year-old male presenting today with severe sore throat and swelling ongoing for the last 24 hours able to tolerate secretions and swallow at the moment no other significant symptoms. He does state he has been told he needs to have his tonsils out multiple times in the past but has not done so. Related Data Previous Rx's ?Medication ?Instructions ?Recorded amoxicillin 875 mg-potassium 1 tab PO BID 10 days #20 tabs 06/26/25 clavulanate 125 mg tablet Allergies Allergy/AdvReac Type Severity Reaction Status Date / Time No Known Allergies Allergy Verified 06/26/25 11:26 [facility] Disclaimer: The information contained in this section may have been updated after the patient was seen, as this information can be updated by other users. Social History Smoking Status: Never smoker alcohol intake: never substance use type: denies use current occupational status: student Travel in the last 8 weeks?: None household members: family housing: house Have you lived/traveled outside US in past 30 days?: No Contact w/someone who lives/traveled outside US past 30 days?: No Exposure to someone with infectious disease in past 14 days?: No Do you have a fever (greater than 100.4 F or 38 C)?: No Have you tested positive for COVID-19?: No Exposed to someone with COVID-19 in past 14 days?: No Do you have a sore throat?: No Do you have a cough?: No Do you have any weakness?: No Do you have any diarrhea?: No Are you experiencing any unusual bleeding?: No Do you have any muscle aches/pain?: No Do you have any abdominal pain?: No Are you experiencing loss of taste or smell?: No Other Medical History Have you received the Flu Vaccine for this season: No Have you received the Pneumonia Vaccine: No ROS Obtained: Yes All systems reviewed & no additional complaints except as documented Physical Exam General General appearance: alert and in no apparent distress ENT ENT exam: Present other (Severe bilateral exudative pharyngitis and tonsillitis worse on the right with asymmetry in the soft tissue surrounding the right tonsil patient also has a muffled voice) Respiratory Respiratory exam: Present normal lung sounds bilaterally Cardiovascular Cardiovascular exam: Present regular rate Neurological Exam Neurological exam: Present alert and oriented X3 Medical Decision Making Medical Records Screening: Per USPSTF and CDC recommendations, given the prevalence of disease in our region, it is our hospital?s policy to screen for HIV and viral Hepatitis for all patients aged 18 and over and those with ongoing risk factors. Mg Inquiry Pt receiving controlled substance: No Vital Signs: 06/26/25 11:22 Temperature 98.7 F Temperature Source Oral Pulse Rate [Left Brachial] 99 H Respiratory Rate 16 Blood Pressure [Left Arm] 133/83 Blood Pressure Mean [Left Arm] 99 Blood Pressure Source [Left Arm] Automatic Cuff Blood Pressure Position [Left Arm] Sitting 02 Sat by Pulse Oximetry 100 Oxygen Delivery Method Room Air Orders (Tests/Meds): ED MEDICATIONS Discontinued Medications Generic Name Dose Route Start Last Admin Trade Name Freq PRN Reason Stop Dose Admin Amoxicillin/Clavulanate Potassium 1 each 06/26/25 11:33 Amoxicillin/Clavulanate Potassium 875/125mg Tablet PO 06/26/25 11:34 ONCE ONE Dexamethasone 10 mg 06/26/25 11:33 Dexamethasone 1mg/1ml Intensol 10ml Udc (Er) PO 06/26/25 11:34 ONCE ONE ORDERS Category Date Time Status Rapid PCR Covid and Flu A/B Stat Lab 06/26/25 11:33 Ordered Strep Scrn Group A (Rapid) Stat Lab 06/26/25 11:33 Ordered Medical Decision Narrative: 19-year-old with above history and physical very concerning for possible peritonsillar abscess he has severe bilateral exudative pharyngitis and tonsillitis swabs for viruses and strep have been sent. Will go ahead and empirically treat him with Augmentin and give him dexamethasone. I offered to do a contrasted CT scan however the patient refused an IV as he states he just does not like them. He understands there is significant morbidity and mortality associated with this condition if it progresses but would like to hold off on the study at this point and follow-up if it gets worse or return to emergency department if it gets worse. Patient was ultimately discharged in a stable condition antibiotic sent to his pharmacy. Strict return precautions emphasized. Critical Care Critical Care Time Critical Care Time: No
[2025-06-26 11:45] LABS: Coronavirus 19, PCR Not Detected (NotDetected); Influenza A, PCR Not Detected (NotDetected); Influenza B, PCR Not Detected (NotDetected)
[2025-06-26] MEDS: AMOXICILLIN/CLAVULANATE POTASSIUM 875/125MG TABLET 1 EACH PO (11:47)
[2025-06-26] MEDS: DEXAMETHASONE 4MG TABLET 10 MG PO (11:50)
[2025-06-26 11:59] VITALS: BP 133/83; PULSE 99; RESP 16; TEMP 37.1; O2SAT 100
[2025-06-26 12:10] LABS: Strep Scrn Group A (Rapid) Positive (Negative)
== END 2025-06-26 12:01 | disposition home or self-care (01) ==
PROVIDERS: Emergency Provider Student in an Organized Health Care Education/Training Program
DX: J02.0 Streptococcal pharyngitis (principal)
CPT/HCPCS: 87430; 87636; 99283; 99284; J8540